=== PATIENT | male | born 1960 | race Caucasian/White ===

== ENCOUNTER 2018-08-14 08:59 | Emergency (ER) | payer MEDICAID ==
[~2018-08-14] VITALS: Ht 177.8 cm; Wt 79.5 kg
[2018-08-14] MEDS ORDERED: BUSP5TAB20 PO (09:13)
[2018-08-14] MEDS ORDERED: RISP.5 PO (09:13)
[2018-08-14] MEDS ORDERED: MIRT15 PO (09:13)
[2018-08-14] MEDS ORDERED: ATEN25TA PO (09:13)
[2018-08-14] MEDS ORDERED: HYDR50CA10 PO (09:13)
[2018-08-14 10:59] VITALS: BP 127/89
[2018-08-14] MEDS ORDERED: LIDOCAINE 5% TRANSDERMAL PATCH TD ONE (11:00)
== END 2018-08-14 11:09 | disposition home or self-care (01) ==
LOC: EMS 08:59
DX: S76.012A Strain of muscle, fascia and tendon of left hip, initial encounter (principal); W19.XXXA Unspecified fall, initial encounter; Y93.89 Activity, other specified; Y92.89 Other specified places as the place of occurrence of the external cause; Y99.8 Other external cause status; F17.210 Nicotine dependence, cigarettes, uncomplicated; F15.90 Other stimulant use, unspecified, uncomplicated; F14.90 Cocaine use, unspecified, uncomplicated; F11.90 Opioid use, unspecified, uncomplicated; Z88.0 Allergy status to penicillin; Z88.6 Allergy status to analgesic agent; Z79.899 Other long term (current) drug therapy
CPT/HCPCS: 36415; 72170; 99284; G0480